=== PATIENT | female | born 1950 | race Caucasian/White ===

== ENCOUNTER → 2017-10-17 | Outpatient (CLI) | payer MEDICARE | END | disposition home or self-care (01) | LOC: CFH 07:32 | PROVIDERS: ATTEND Nurse Practitioner Primary Care | DX: R94.5 Abnormal results of liver function studies (principal); E03.9 Hypothyroidism, unspecified; K21.9 Gastro-esophageal reflux disease without esophagitis; E78.2 Mixed hyperlipidemia; R79.9 Abnormal finding of blood chemistry, unspecified; R73.01 Impaired fasting glucose | CPT/HCPCS: 76700 ==